=== PATIENT | male | born 1960 | race Caucasian/White ===

== ENCOUNTER 2018-06-05 16:28 | Emergency (ER) | payer MEDICARE, OTHER ==
[2018-06-05 16:57] VITALS: RESP 18
[2018-06-05] MEDS ORDERED: methylPREDNISolone SOD SUCCI 125 MG/2 ML VIAL IM ONE (17:25)
[2018-06-05] MEDS ORDERED: KETOROLAC 60 MG/2 ML VIAL IM STA (17:25)
[2018-06-05] MEDS ORDERED: HYDROcodone/APAP 5-325MG 1 EACH TAB PO STA (17:26)
--- NOTE | 2018-06-05 17:29 | ED ---
General Adult HPI - General Chief complaint: Extremity Problem,Nontraumatic Stated complaint: rt leg pain Time Seen by Provider: 06/05/18 17:04 Source: patient, RN notes reviewed, old records reviewed Mode of arrival: wheelchair Limitations: no limitations - History of Present Illness Initial comments: Patient's 49-year-old male who presents emergency department today for evaluation for right leg pain. Patient reports that for the past 3 weeks has been having pain running from his buttocks down his leg. He reports that he has had worsening right knee pain. Reports it feels like the side of his leg has tight muscles. Patient states that he has no recall of fall or trauma to cause the onset of this pain. Patient states he saw his PCP and was started on steroids and pain medication. He reports he took his last steroid yesterday. Patient reports they called his PCP and the Patient be told him to come here for an MRI. Patient denies any saddle anesthesias. - Related Data Home Medications Medication Instructions Recorded Confirmed Diazepam [Valium] 10 mg PO BID PRN 04/10/14 06/05/18 Lisinopril [Prinivil] 20 mg PO DAILY 04/10/14 06/05/18 Metoprolol Tartrate [Lopressor] 50 mg PO BID 04/10/14 06/05/18 Simvastatin [Zocor] 40 mg PO DAILY 04/10/14 06/05/18 Hydrocodone/Acetaminophen [[place] 1 tab PO Q6HR PRN 06/05/18 06/05/18 5-325] Hydroxychloroquine Sulfate 200 mg PO BID 06/05/18 06/05/18 [Plaquenil] Ibuprofen [Advil] 600 mg PO Q46H PRN 06/05/18 06/05/18 metFORMIN HCL [Glucophage] 1,000 mg PO QAM 06/05/18 06/05/18 metFORMIN HCL [Glucophage] 500 mg PO HS 06/05/18 06/05/18 Previous Rx's Medication Instructions Recorded Dexamethasone 0.75 mg PO DAILY #12 tab 06/05/18 HYDROcodone/APAP 5-325MG [[place] 1 tab PO Q6HR PRN #10 tab 06/05/18 5-325] Ibuprofen 800 mg PO TID #30 tablet 06/05/18 Allergies Allergy/AdvReac Type Severity Reaction Status Date / Time codeine AdvReac Nausea & Verified 06/05/18 17:17 Vomiting Review of Systems ROS Statement: Those systems with pertinent positive or pertinent negative responses have been documented in the HPI. ROS Other: All systems not noted in ROS Statement are negative. Past Medical History Past Medical History: Hyperlipidemia, Hypertension Additional Past Medical History / Comment(s): CYST ON SPINE. NECK , BACK AND SHOULDER PAIN WITH NUMBNESS IN ARMS AND LEGS. History of Any Multi-Drug Resistant Organisms: None Reported Past Surgical History: No Surgical Hx Reported Additional Past Anesthesia/Blood Transfusion Reaction / Comment(s): HAS NEVER RECEIVED ANESTHESIA Past Psychological History: Anxiety Smoking Status: Former smoker Past Alcohol Use History: Occasional Past Drug Use History: Marijuana General Exam - General Exam Comments Initial Comments: 49-year-old male. Alert and oriented. No distress. Limitations: no limitations General appearance: alert, in no apparent distress Head exam: Present: atraumatic, normocephalic, normal inspection Eye exam: Present: normal appearance, PERRL, EOMI. Absent: scleral icterus, conjunctival injection, periorbital swelling ENT exam: Present: normal exam, mucous membranes moist Neck exam: Present: normal inspection. Absent: tenderness, meningismus, lymphadenopathy Respiratory exam: Present: normal lung sounds bilaterally. Absent: respiratory distress, wheezes, rales, rhonchi, stridor Cardiovascular Exam: Present: regular rate, normal rhythm, normal heart sounds. Absent: systolic murmur, diastolic murmur, rubs, gallop, clicks GI/Abdominal exam: Present: soft, normal bowel sounds. Absent: distended, tenderness, guarding, rebound, rigid Extremities exam: Present: normal inspection, full ROM, normal capillary refill. Absent: tenderness, pedal edema, joint swelling, calf tenderness Back exam: Present: normal inspection, muscle spasm (Luis spasm of the right piriformis muscle.), other (Straight leg test is positive for the right leg.) Neurological exam: Present: alert, oriented X3, CN II-XII intact Psychiatric exam: Present: normal affect, normal mood Skin exam: Present: warm, dry, intact, normal color. Absent: rash Course Vital Signs 06/05/18 06/05/18 16:54 18:48 Temperature 98.1 F Pulse Rate 79 77 Respiratory 18 18 Rate Blood Pressure 148/89 146/96 O2 Sat by Pulse 97 98 Oximetry Medical Decision Making - Medical Decision Making Patient is a 57-year-old male presents responsive radiculopathy symptoms from the lower back radiate down the right leg. No significant right knee pain. Patient had x-rays out patiently which were inconclusive. Patient's CT of the lumbar spine same shows L3-L4 right sided disc protrusion. He denies saddle anesthesias. Discusses reports to patient's sciatic pain. Discussing is follow-up with orthopedic food safety specialist. Right knee x-rays completed as well message for any acute process. I discussed that he needs to alternate between heat and ice and will discharge Patient with a short course of antibiotic for medicine on a course of pain medicine. - Radiology Data Radiology results: report reviewed L3-L4 right far lateral posterior lateral disc protrusion. Data for any acute process. Disposition Clinical Impression: Protruded lumbar disc, Sciatica, IT band syndrome Disposition: HOME SELF-CARE Condition: Good Instructions (If sedation given, give patient instructions): Lumbar Disc Herniation (ED) Additional Instructions: Patient advised to follow-up with primary care physician. Return to emergency department if any alarming signs or symptoms occur. Prescriptions: Dexamethasone 0.75 mg PO DAILY #12 tab Ibuprofen 800 mg PO TID #30 tablet HYDROcodone/APAP 5-325MG [[place] 5-325] 1 tab PO Q6HR PRN #10 tab PRN Reason: Pain Is patient prescribed a controlled substance at d/c from ED?: Yes If prescribed controlled substance>3 days was MAPS reviewed?: Prescribed <3 Days If opioid is for acute pain is fill amount 7 days or less?: Yes If Rx opioid, was Start Talking consent form obtained?: Yes Referrals: Praveen Parrish MD [Primary Care Provider] - 1-2 days Gloria Fletcher DO [Doctor of Osteopathic Medicine] - 1-2 days Time of Disposition: 19:26
--- NOTE | 2018-06-05 19:17 | CT ---
EXAMINATION TYPE: CT lumbar spine wo con DATE OF EXAM: 06/05/2018 6:21 PM HISTORY: Back pain with radiating pain down right leg post trauma 1 month ago TECHNIQUE: Department protocol. Unenhanced CT of the lumbar spine was performed. Bone and soft tissu e window settings are submitted as well as coronal and sagittal reconstructions. CT DLP: 1219 mGycm Automated exposure control for dose reduction was used. COMPARISON: None FINDINGS: There is no fracture or malalignment. No pars interarticularis defects or focal skeletal l esions. There are no paraspinal soft tissue abnormalities, and no incidental extra spinal findings. 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 Thoracolumbar junction, L1-2 and L2-3 levels: No significant findings. At L3-4, there is a far lateral right-sided posterolateral disc protrusion with abutment and posterio r displacement of the already exited right L3 nerve root. There is subtle bilateral L4 lateral recess narrowing. At L4-L5, broad-based circumferential disc bulging with ligamentum flavum hypertrophy creates mild bi lateral L5 lateral recess narrowing. At L5-S1, no nerve root impingement. IMPRESSION: L3-4 right far lateral posterior lateral disc protrusion.
--- NOTE | 2018-06-05 19:18 | XR ---
PROCEDURE: XR knee complete RT - 3V DATE AND TIME: 06/05/2018 6:47 PM CLINICAL INDICATION: PHH; Pain TECHNIQUE: Department protocol COMPARISON: None FINDINGS: There is no fracture or malalignment. The soft tissues are unremarkable. IMPRESSION: NO ACUTE PROCESS.
[2018-06-05] MEDS ORDERED: ACET/COD 300 MG/30 MG STARTER PACK 6 TAB BTL PO STA (19:38)
[2018-06-05 19:41] VITALS: BP 170/97; PULSE 80; TEMP 97.9
== END 2018-06-05 19:59 | disposition home or self-care (01) ==
LOC: EC 16:28
DX: M51.16 Intervertebral disc disorders with radiculopathy, lumbar region (principal); M76.31 Iliotibial band syndrome, right leg; E78.5 Hyperlipidemia, unspecified; I10 Essential (primary) hypertension; Z87.891 Personal history of nicotine dependence; Z79.84 Long term (current) use of oral hypoglycemic drugs; Z79.899 Other long term (current) drug therapy; Z88.5 Allergy status to narcotic agent
CPT/HCPCS: 73562; 72131; 99284; 96372 ×2; J2930; J1885

== ENCOUNTER 2019-06-28 17:01 | Emergency (ER) | payer MEDICARE ==
[2019-06-28] MEDS ORDERED: SODIUM CHLORIDE 0.9% 1,000 ML IV STA ×2 (17:45→19:36)
--- NOTE | 2019-06-28 17:51 | ED ---
General Adult HPI - General Chief complaint: Skin/Abscess/Foreign Body Stated complaint: Abscess Time Seen by Provider: 06/28/19 17:35 Source: patient, RN notes reviewed Mode of arrival: ambulatory Limitations: no limitations - History of Present Illness Initial comments: 58-year-old male with a past medical history of hyperlipidemia, hypertension, NIDDM taking Metformin presents to the emergency department for a chief complaint of abscess. Patient states he has had an abscess on his bottom for about a week now. Patient states it is progressively worsening. Patient states he has been taking penicillin for about 3 days but it has not been improving. Patient states he has had a temperature up to 103 at home. He denies any other symptoms. He denies abdominal pain. He does admit to diabetes.Patient has no other complaints at this time including shortness of breath, chest pain, abdominal pain, nausea or vomiting, headache, or visual changes. - Related Data Home Medications Medication Instructions Recorded Confirmed Diazepam [Valium] 10 mg PO BID PRN 04/10/14 06/05/18 Lisinopril [Prinivil] 20 mg PO DAILY 04/10/14 06/05/18 Metoprolol Tartrate [Lopressor] 50 mg PO BID 04/10/14 06/05/18 Simvastatin [Zocor] 40 mg PO DAILY 04/10/14 06/05/18 Hydrocodone/Acetaminophen [[place] 1 tab PO Q6HR PRN 06/05/18 06/05/18 5-325] Hydroxychloroquine Sulfate 200 mg PO BID 06/05/18 06/05/18 [Plaquenil] Ibuprofen [Advil] 600 mg PO Q46H PRN 06/05/18 06/05/18 metFORMIN HCL [Glucophage] 1,000 mg PO QAM 06/05/18 06/05/18 metFORMIN HCL [Glucophage] 500 mg PO HS 06/05/18 06/05/18 Previous Rx's Medication Instructions Recorded Cyclobenzaprine [Flexeril] 10 mg PO TID #20 tab 06/05/18 Dexamethasone 0.75 mg PO DAILY #12 tab 06/05/18 HYDROcodone/APAP 5-325MG [[place] 1 tab PO Q6HR PRN #10 tab 06/05/18 5-325] Ibuprofen 800 mg PO TID #30 tablet 06/05/18 Allergies Allergy/AdvReac Type Severity Reaction Status Date / Time codeine AdvReac Nausea & Verified 06/28/19 17:30 Vomiting Review of Systems ROS Statement: Those systems with pertinent positive or pertinent negative responses have been documented in the HPI. ROS Other: All systems not noted in ROS Statement are negative. Past Medical History Past Medical History: Diabetes Mellitus, Hyperlipidemia, Hypertension Additional Past Medical History / Comment(s): CYST ON SPINE. NECK , BACK AND SHOULDER PAIN WITH NUMBNESS IN ARMS AND LEGS. History of Any Multi-Drug Resistant Organisms: None Reported Past Surgical History: No Surgical Hx Reported Additional Past Anesthesia/Blood Transfusion Reaction / Comment(s): HAS NEVER RECEIVED ANESTHESIA Past Psychological History: Anxiety Smoking Status: Former smoker Past Alcohol Use History: None Reported, Occasional Past Drug Use History: Marijuana General Exam Limitations: no limitations General appearance: alert, in no apparent distress Head exam: Present: atraumatic, normocephalic, normal inspection Eye exam: Present: normal appearance, PERRL, EOMI. Absent: scleral icterus, conjunctival injection, periorbital swelling ENT exam: Present: normal exam, mucous membranes moist Neck exam: Present: normal inspection. Absent: tenderness, meningismus, lymphadenopathy Respiratory exam: Present: normal lung sounds bilaterally. Absent: respiratory distress, wheezes, rales, rhonchi, stridor Cardiovascular Exam: Present: regular rate, normal rhythm, normal heart sounds. Absent: systolic murmur, diastolic murmur, rubs, gallop, clicks GI/Abdominal exam: Present: soft, normal bowel sounds. Absent: distended, tenderness, guarding, rebound, rigid Rectal exam: Present: other (induration noted to R buttock near anus . no fluctuance) Course Vital Signs 06/28/19 06/28/19 17:31 18:27 Temperature 98.3 F 100.7 F H Pulse Rate 71 79 Respiratory 18 16 Rate Blood Pressure 109/56 121/69 O2 Sat by Pulse 98 99 Oximetry Medical Decision Making - Medical Decision Making Patient presents febrile with a temperature of 100.7. He does have induration noted near the anus. There is no obvious fluctuance. CBC does show leukocytosis with a left shift. CMP shows slightly elevated creatinine, could be on the basis of dehydration. Lactic acid of 2.3. Patient was given fluids. CT abdomen and pelvis with contrast was obtained which showed a large perianal and perirectal abscess measuring up to 11.7 cm in craniocaudal dimension extending from the left lateral aspect of the rectum into the mesorectal fat and also posterior to the rectum with mass effect on the rectum seen. I did discuss his case with Dr. cha on-call surgeon. He is not comfortable managing this complication. He is concerned it may need transrectal IR drainage which is not done at this facility. Recommends transfer to [facility]. I did talk to Dr Lima who does accept this transfer. She was started on vancomycin and Zosyn. Given fluids based on ideal body weight of 66 kg. she is updated on plan and is agreeable to transfer. - Lab Data Result diagrams: 06/28/19 18:31 06/28/19 18:31 Lab Results 06/28/19 06/28/19 06/28/19 Range/Units 18:31 18:31 18:31 WBC 13.4 H (3.8-10.6) k/uL RBC 4.00 L (4.30-5.90) m/uL Hgb 13.2 (13.0-17.5) gm/dL Hct 41.0 (39.0-53.0) % MCV 102.6 H (80.0-100.0) fL MCH 32.9 (25.0-35.0) pg MCHC 32.1 (31.0-37.0) g/dL RDW 12.1 (11.5-15.5) % Plt Count 347 (150-450) k/uL Neutrophils % 89 % Lymphocytes % 6 % Monocytes % 4 % Eosinophils % 1 % Basophils % 0 % Neutrophils # 11.9 H (1.3-7.7) k/uL Lymphocytes # 0.8 L (1.0-4.8) k/uL Monocytes # 0.5 (0-1.0) k/uL Eosinophils # 0.1 (0-0.7) k/uL Basophils # 0.0 (0-0.2) k/uL Macrocytosis Slight Sodium 131 L (137-145) mmol/L Potassium 3.8 (3.5-5.1) mmol/L Chloride 95 L (98-107) mmol/L Carbon Dioxide 22 (22-30) mmol/L Anion Gap 14 mmol/L BUN 33 H (9-20) mg/dL Creatinine 1.46 H (0.66-1.25) mg/dL Est GFR (CKD-EPI)AfAm 60 (>60 ml/min/1.73 sqM) Est GFR (CKD-EPI)NonAf 52 (>60 ml/min/1.73 sqM) Glucose 207 H (74-99) mg/dL Lactic Ac Sepsis Rflx Plasma Lactic Acid [place] 2.3 H* (0.7-2.0) mmol/L Calcium 8.5 (8.4-10.2) mg/dL Total Bilirubin 1.1 (0.2-1.3) mg/dL AST 123 H (17-59) U/L ALT 97 H (4-49) U/L Alkaline Phosphatase 266 H (38-126) U/L Total Protein 6.2 L (6.3-8.2) g/dL Albumin 3.2 L (3.5-5.0) g/dL Urine Color Urine Appearance (Clear) Urine pH (5.0-8.0) Ur Specific [place] (1.001-1.035) Urine Protein (Negative) Urine Glucose (UA) (Negative) Urine Ketones (Negative) Urine Blood (Negative) Urine Nitrite (Negative) Urine Bilirubin (Negative) Urine Urobilinogen (<2.0) mg/dL Ur Leukocyte Esterase (Negative) Urine RBC (0-5) /hpf Urine WBC (0-5) /hpf Ur Squamous Epith Cells (0-4) /hpf Hyaline Casts (0-2) /lpf Granular Casts (0) /lpf Urine Mucus (None) /hpf 06/28/19 06/28/19 Range/Units 19:13 21:23 WBC (3.8-10.6) k/uL RBC (4.30-5.90) m/uL Hgb (13.0-17.5) gm/dL Hct (39.0-53.0) % MCV (80.0-100.0) fL MCH (25.0-35.0) pg MCHC (31.0-37.0) g/dL RDW (11.5-15.5) % Plt Count (150-450) k/uL Neutrophils % % Lymphocytes % % Monocytes % % Eosinophils % % Basophils % % Neutrophils # (1.3-7.7) k/uL Lymphocytes # (1.0-4.8) k/uL Monocytes # (0-1.0) k/uL Eosinophils # (0-0.7) k/uL Basophils # (0-0.2) k/uL Macrocytosis Sodium (137-145) mmol/L Potassium (3.5-5.1) mmol/L Chloride (98-107) mmol/L Carbon Dioxide (22-30) mmol/L Anion Gap mmol/L BUN (9-20) mg/dL Creatinine (0.66-1.25) mg/dL Est GFR (CKD-EPI)AfAm (>60 ml/min/1.73 sqM) Est GFR (CKD-EPI)NonAf (>60 ml/min/1.73 sqM) Glucose (74-99) mg/dL Lactic Ac Sepsis Rflx Y Plasma Lactic Acid [place] (0.7-2.0) mmol/L Calcium (8.4-10.2) mg/dL Total Bilirubin (0.2-1.3) mg/dL AST (17-59) U/L ALT (4-49) U/L Alkaline Phosphatase (38-126) U/L Total Protein (6.3-8.2) g/dL Albumin (3.5-5.0) g/dL Urine Color Yellow Urine Appearance Cloudy (Clear) Urine pH 5.5 (5.0-8.0) Ur Specific [place] 1.022 (1.001-1.035) Urine Protein 2+ H (Negative) Urine Glucose (UA) Negative (Negative) Urine Ketones Negative (Negative) Urine Blood Negative (Negative) Urine Nitrite Negative (Negative) Urine Bilirubin Negative (Negative) Urine Urobilinogen <2.0 (<2.0) mg/dL Ur Leukocyte Esterase Small H (Negative) Urine RBC 1 (0-5) /hpf Urine WBC 19 H (0-5) /hpf Ur Squamous Epith Cells 3 (0-4) /hpf Hyaline Casts 395 H (0-2) /lpf Granular Casts 40 (0) /lpf Urine Mucus Few H (None) /hpf Disposition Clinical Impression: Perirectal abscess, Leukocytosis, Lactic acidosis Disposition: OTHER INSTITUTION NOT DEFINED Is patient prescribed a controlled substance at d/c from ED?: No Referrals: Praveen Parrish MD [Primary Care Provider] - 1-2 days Time of Disposition: 22:18 - Out of Hospital Transfer - Req. Specs Out of Hospital Transfer - Requested Specifics: Other Emergency Center ([facility])
[2019-06-28] MEDS ORDERED: DIAZEPAM 5 MG/ML 2 ML INJ IVP STA (17:54)
[2019-06-28] MEDS ORDERED: ACETAMINOPHEN TAB 500 MG TAB PO STA (18:43)
[2019-06-28 18:52] LABS: Basophils % (A) 0 %; Eosinophils # (A) 0.1 k/uL (0-0.7); Eosinophils % (A) 1 %; HGB 13.2 gm/dL (13.0-17.5); Lymphocytes # (A) 0.8 k/uL (1.0-4.8); Lymphocytes % (A) 6 %; MCH 32.9 pg (25.0-35.0); MCHC 32.1 g/dL (31.0-37.0); MCV 102.6 fL (80.0-100.0); Macrocytosis Slight; Mean Platelet Volume 7.7; Monocytes # (A) 0.5 k/uL (0-1.0); Monocytes % (A) 4 %; Neutrophils # (A) 11.9 k/uL (1.3-7.7); Neutrophils % (A) 89 %; Platelet Count 347 k/uL (150-450); RDW 12.1 % (11.5-15.5); WBC 13.4 k/uL (3.8-10.6)
[2019-06-28 19:06] LABS: Albumin 3.2 g/dL (3.5-5.0); Calcium 8.5 mg/dL (8.4-10.2); Potassium 3.8 mmol/L (3.5-5.1); Total Bilirubin 1.1 mg/dL (0.2-1.3); Total Protein 6.2 g/dL (6.3-8.2)
[2019-06-28] MEDS ORDERED: cefTRIAXone IN SWFI 1,000 MG/10 ML SYRINGE IVP STA (19:36)
--- NOTE | 2019-06-28 20:12 | CT ---
EXAMINATION TYPE: CT pelvis w con DATE OF EXAM: 06/28/2019 COMPARISON: HISTORY: Abscess near anus. CT DLP: 1085.1 mGycm Automated exposure control for dose reduction was used. CONTRAST: Performed with IV Contrast, patient injected with 80 mL of Isovue 300. FINDINGS: Perianal abscess is multiloculated containing air-fluid levels measuring up to 3.9 x 6.9 x 11.7 cm in transverse by anterior posterior by craniocaudal dimension. There is mass effect on the adjacent per irectal fascia and rectum. This extends into the mesorectal fat. There is communication of the absces s posterior to the rectum as well as image 55. Urinary bladder is incompletely distended giving the appearance of urinary bladder wall thickening. I f there is concern urinalysis could be performed. Multiple sigmoid diverticula are seen without peric olonic fat stranding. The visualized portions of the liver slightly hypoattenuated. Correlate with se rum laboratory values to assess for hepatic steatosis. Additionally there is somewhat greater hypoatt enuation in the gallbladder that should be evaluated with follow-up three-phase CT abdomen. Too small to accurately characterize 8 mm hypoattenuated hepatic lesion is seen. Mild atherosclerosis of the abdominal aorta. Mild degenerative change of the lumbosacral junction. IMPRESSION: 1. Large perianal and perirectal abscess measuring up to 11.7 cm in craniocaudal dimension extending from the left lateral aspect of the rectum into the mesorectal fat and also posterior to the rectum. Mass effect on the rectum is seen. 2. Findings suggesting hepatic steatosis and more diffuse heterogeneity around the gallbladder fossa. Follow-up nonemergent three-phase CT abdomen is recommended for further evaluation. 3. Urinary bladder wall thickening is likely related to incomplete distention. If there is further co ncern correlation with urinalysis could be performed.
[2019-06-28] MEDS ORDERED: VANCOMYCIN IV PER PHARMACY 1 EACH MISC MISCELLANE PRN (20:32)
[2019-06-28] MEDS ORDERED: PIPERACILLIN-TAZOBACTAM 3.375 GM in SODIUM CHLORIDE 0.9% 100 ML IVPB STA (20:32)
[2019-06-28] MEDS ORDERED: LIDOCAINE 1% INJ 10MG/ML (20 ML MDV) SQ ONE (20:42)
[2019-06-28] MEDS ORDERED: VANCOMYCIN 1,500 MG in SODIUM CHLORIDE 0.9% 250 ML IVPB ONE (21:00)
[2019-06-28] MEDS ORDERED: HYDROmorphone 0.5 MG/0.5 ML SYRINGE IVP STA (21:33)
[2019-06-28 21:47] LABS: Appearance,Urine Cloudy (Clear); Bilirubin,Urine Negative (Negative); Blood,Urine Negative (Negative); Color,Urine Yellow; Glucose,Urine (UA) Negative (Negative); Granular Casts,Urine 40 /lpf (0); Hyaline Casts,Urine 395 /lpf (0-2); Ketones,Urine Negative (Negative); Leukocyte Esterase,Urine Small (Negative); Mucus,Urine Few /hpf; Nitrite,Urine Negative (Negative); PH, Urine 5.5 (5.0-8.0); Protein,Urine 2+ (Negative); RBC,Urine 1 /hpf (0-5); Specific Gravity,Urine 1.022 (1.001-1.035); Squamous Epithelial Cell,Urine 3 /hpf (0-4); Urobilinogen,Urine <2.0 mg/dL (<2.0); WBC,Urine 19 /hpf (0-5)
[2019-06-29 00:23] VITALS: BP 132/68; PULSE 86; RESP 18; TEMP 98.6
[2019-06-29] MEDS ORDERED: VANCOMYCIN 1,500 MG in SODIUM CHLORIDE 0.9% 250 ML IVPB SCH (13:00)
== END 2019-06-28 23:20 | disposition other institution (70) ==
LOC: EC 17:01
DX: Z03.818 Encounter for observation for suspected exposure to other biological agents ruled out (principal); K61.1 Rectal abscess; L02.215 Cutaneous abscess of perineum; D72.829 Elevated white blood cell count, unspecified; E87.2 Acidosis; R79.89 Other specified abnormal findings of blood chemistry; E11.9 Type 2 diabetes mellitus without complications; E78.5 Hyperlipidemia, unspecified; I10 Essential (primary) hypertension; Z87.891 Personal history of nicotine dependence; Z79.84 Long term (current) use of oral hypoglycemic drugs; Z79.899 Other long term (current) drug therapy; Z88.5 Allergy status to narcotic agent; Z53.8 Procedure and treatment not carried out for other reasons
CPT/HCPCS: 99284 ×2; 96365 ×2; 96366 ×2; 96375 ×4; 96361 ×3; 36415; 80053; 83605; 85025; 81001; 87040; 87086; 87635; 72193; J2543; J3370; J3360; J0696; J1170; Q9967